=== PATIENT | female | born 1990 | race African-American/Black ===

== ENCOUNTER 2018-01-11 13:22 | Emergency (ER) | payer MEDICAID ==
--- NOTE | 2018-01-11 14:05 | PD ---
HPI Chief Complaint Vaginal cyst, damp underwear Travel History International Travel<30 Days: No Contact w/Intl Traveler<30Days: No Known Affected Area: No History of Present Illness HPI 27-year-old , IUP at 28.0 care uncomplicated The patient presents complaining of increased wetness in her underwear today. She denies any leaking of a large amount of fluid. She denies any gush of fluid. She denies any vaginal bleeding. She denies any painful contractions or cramping. She also reports that she has had some sharp pain in her left groin that has been only noted for today. She also reports that she has a "big " vaginal lump that she just noticed today. She says the lump is nontender at rest and movement, however when she squeezes it it is a little bit tender. The patient denies ever having this in the past. She reports no aggravating factors that she is aware of. The patient reports normal movement. Weeks Gestation: 28 Para: 0 : 1 History Past Medical History Medical History: Denies Significant Hx Obstetric History Obstetric History Past Surgical History Surgical History: No Previous Surgery Family History Narrative Family History DM Social History Alcohol Use: No Tobacco Use: No Substance Abuse: No Review of Systems Except as stated in HPI: all other systems reviewed are Neg Physical Exam Narrative GENERAL: Well-nourished, well-developed patient. SKIN: Warm and dry. HEAD: Normocephalic and atraumatic. EYES: No scleral icterus. No injection or drainage. ENT: No nasal drainage noted. Mucous membranes pink. Airway patent. NECK: Supple, trachea midline. No JVD. CARDIOVASCULAR: Regular rate and rhythm without murmurs, gallops, or rubs. RESPIRATORY: Breath sounds equal bilaterally. No accessory muscle use. BREASTS: Deferred ABDOMEN/GI: Abdomen soft, non-tender, bowel sounds present, no rebound, no guarding Gravid GENITOURINARY: External Genitalia: intact and normal in appearance except 1.5cm palpable Bartholin's cyst on the left, no evidence of abscess formation. Mass is nontender except with pressure or significant manipulation. SSE with no evidence of PPROM, physiologic appearing discharge, no cervical or specific vaginal masses. Amnisure neg. SVE closed. Negative Valsalva, no pooling, no gross evidence of rupture of membranes. FHT's: heart tones in the 140s with moderate half-way variability, good accels, and no decels. FHR reassuring and appropriate for gestational age. FHR with category 1 tracing and reactive NST for gestational age. EXTREMITIES: No cyanosis or edema. BACK: Nontender without obvious deformity. NEUROLOGICAL/musculoskeletal: Awake and alert. Motor and sensory grossly within normal limits. grossly normal muscle strength in all muscle groups. Normal speech. grossly normal ROM, gait. Psychiatric: grossly normal memory, affect MDM Plan Assessment/plan: 1. IUP at 28.0 2. No evidence of P PROM, patient had noted increased dampness of her underwear , and initially was negative. No evidence of rupture men and on exam, strict PPROM precautions 3. Probable Bartholin's cyst: We discussed the etiology of Bartholin's cyst formation. We discussed the difference between a nontender cyst versus a Bartholin's abscess which is extremely tender, enlarges, and causes pain with walking and other activity. All this appears to favor a cyst over abscess, we discussed that if this were an early abscess would become exquisitely tender and enlarge. All of patient's questions were answered. Patient to follow-up with Dr. Monreal. 4. No evidence of labor, strict labor precautions 5. well-being: Reassuring testing with reactive NST and category 1 heart rate tracing. FHR is reassuring and appropriate for gestational age. kick counts daily. 6. Follow-up with Dr. Walker Floyd in 2-3 days or sooner if needed Diagnosis Diagnosis: Primary Impression: 28 weeks gestation of Additional Impressions: No leakage of amniotic fluid into vagina Bartholin cyst Disposition: 01 DISCHARGE HOME Condition: Catina Claros MD Jan 11, 2018 14:05
== END 2018-01-11 14:30 | disposition home or self-care (01) ==
LOC: HOBED 13:22
DX: O26.893 Other specified pregnancy related conditions, third trimester (principal); N75.0 Cyst of Bartholin's gland; Z3A.28 28 weeks gestation of pregnancy
CPT/HCPCS: 84112; 99283

== ENCOUNTER 2018-03-22 14:10 | Inpatient (IN) ==
[~2018-03-22 14:10] MED LIST: Ketorolac Inj 30 MG/ML (IVP) Vial IV.PUSH ONE; Phenylephrine/NS 1000 MCG/10ML Syringe IV.PUSH ONE
--- NOTE | 2018-03-22 15:28 | ED ---
History of Present Illness Primary Care Physician: No Primary Care Physician History of Present Illness: cc: leaking of fluid 27 year-old , IUP at 38.0 care complicated by A1 DM The patient presents complaining of leaking of clear fluid since about 8:25 this morning. The patient reports that she had a large gush of clear fluid at that time and has been leaking clear fluid since. She reports that she has had some associated back pain. She denies any painful, regular contractions or cramping. She reports good movement. She denies any vaginal bleeding or spotting. She has no other obstetrical complaints today. , denies abnormal Paps or STDs PMH: Gestational diabetes FH: Denies PSH: Denies SH: Denies Meds/allergies as per EMR - Inpatient Certification I certify that the inpatient services were ordered in accordance with Medicare regulations governing the order. This includes certification that hospital inpatient services are reasonable and necessary and in the case of services not specified as inpatient-only under 42 CFR 419.22(n), that they are appropriately provided as inpatient services in accordance to with the 2-midnight benchmark under 43 CFR 412.3(e) Review of Systems All other systems reviewed negative except as stated in HPI PMFSH - Travel History Recent Travel in the [place] Within the Last 8 Weeks: No Recent Travel Out of the Country Within the Last 8 Weeks: No Medications and Allergies Allergies Allergy/AdvReac Type Severity Reaction Status Date / Time No Known Allergies Allergy Unverified 03/22/18 14:34 Home Medications Medication Instructions Recorded Confirmed Type PNV #[id number] 1 tab PO DAILY 03/22/18 03/22/18 History calcium carbonate [Calcium 500] 500 mg PO 03/22/18 History Exam Vital signs: Vital Signs 03/22/18 14:30 03/22/18 14:38 Pulse Rate 94 H Respiratory Rate 18 Blood Pressure 135/65 Intake & Output 03/21/18 03/22/18 03/22/18 18:59 06:59 18:59 Weight 117.934 kg Narrative: GENERAL: Well-nourished, well-developed patient. SKIN: Warm and dry. HEAD: Normocephalic and atraumatic. EYES: No scleral icterus. No injection or drainage. ENT: No nasal drainage noted. Mucous membranes pink. Airway patent. NECK: Supple, trachea midline. No JVD. CARDIOVASCULAR: Regular rate and rhythm without murmurs, gallops, or rubs. RESPIRATORY: Breath sounds equal bilaterally. No accessory muscle use. BREASTS: Deferred ABDOMEN/GI: Abdomen soft, non-tender, bowel sounds present, no rebound, no guarding Gravid GENITOURINARY: Normal egg bus. Grossly normal rugate, no cervical or vaginal masses noted. Amnisure positive. SVE closed to fingertip/80/-3. FHT's: heart tones in the 130s with moderate long-term variability, good accelerations, no decelerations noted. This reactive NST and category 1 heart rate tracing. EXTREMITIES: No cyanosis or edema. BACK: Nontender without obvious deformity. NEUROLOGICAL/psychiatric: Awake and alert. Oriented 3. Grossly normal memory/ affect. Grossly normal range of motion. Motor and sensory grossly within normal limits. Five out of 5 muscle strength in all muscle groups. Normal speech. Limited bedside U/S showed fetus in breech presentation. Results - Labs CBC & Chem 7: 03/22/18 15:00 Assessment and Plan - Plan Assessment/plan: 1. IUP at 30.0 2. PROM: Patient with PROM at approximate 25 this morning. Amnisure is positive. Will admit to Dr. Estevez. 3. Breech presentation: A limited bedside ultrasound was performed for position. The fetus is noted to be in the breech presentation. Discussed with Dr. Estevez will perform a delivery. The patient ate at approximately 1230 so will be scheduled for 6:30 PM tonight. The risks, benefits, and alternatives to delivery were discussed including but not limited to pain, infection, bleeding, injury to other organs like the bladder/bowel/nerves/ vessels, injury to the baby, need for repeat operation, need for hysterectomy, need for blood transfusion, wound infection/breakdown, and other possible risks. We discussed the potential for a trial of labor with her next . All of her questions were answered and consent was signed. 4. A1 DM: The patient is diet controlled gestational diabetic. Accu-Chek: 5. well-being: Reassuring testing with reactive NST and category 1 heart rate tracing. Will continue monitoring at this time. Discharge Plan - Discharge Disposition Patient Disposition: 30 Still Patient - Discharge Condition Condition: Stable - Physicians Team ED Provider: Catina Stone Primary Care Provider: Primary Care Melody Augustine
[2018-03-22] MEDS ORDERED: Citric Acid/Sodium Citrate Liq 30 ML UDC PO SCH (15:45)
[2018-03-22] MEDS ORDERED: ceFAZolin Inj 2,000 MG in Sodium Chlor 0.9% Inj 80 ML IV.SIG SCH (16:00)
[2018-03-22 16:16] LABS: Baso % (Auto) 0.2 % (0.0-2.0); Eos % (Auto) 0.1 % (0.0-4.0); Hematocrit 36.9 % (35.0-46.0); Hemoglobin 12.2 gm/dL (11.6-15.3); Lymph # (Auto) 1.3 th/mm3 (1.0-4.8); Lymph % (Auto) 21.8 % (9.0-44.0); Mean Corpuscular HGB Conc 33.1 % (32.0-36.0); Mean Corpuscular Hemoglobin 29.6 pg (27.0-34.0); Mean Corpuscular Volume 89.7 fL (80.0-100.0); Mean Platelet Volume 9.9 fL (7.0-11.0); Mono # (Auto) 0.5 th/mm3 (0.0-0.9); Mono % (Auto) 8.2 % (0.0-8.0); Neut # (Auto) 4.2 th/mm3 (1.8-7.7); Neut % (Auto) 69.7 % (16.0-70.0); Platelet Count 179 th/mm3 (150-450); Red Blood Count 4.12 mil/mm3 (4.00-5.30); Red Cell Distribution Width 16.2 % (11.6-17.2)
[2018-03-22] MEDS ORDERED: Azithromycin Inj 500 MG in Sodium Chlor 0.9% Inj 250 ML IV.SIG ONE (17:00)
--- NOTE | 2018-03-22 18:06 | P.OBGPN ---
me the patient, discussed risks, benefits and expected outcomes of a , confirmed breech by ultrasound. We will proceed with primary and give azithromycin in addition to Ancef. Queried PDMP and reviewed report
[2018-03-22] MEDS ORDERED: Morphine Sulfate PF Inj 5 MG/10 ML Ampul ONE (18:08)
--- NOTE | 2018-03-22 18:10 | P.OP ---
Date of procedure: 03/22/18 Surgeon: Kevin Estevez MD Operation and Findings: Preoperative diagnosis: 1. Intrauterine at 38 weeks and 0 days 2. malpresentation 3. Obesity 4. GDM A1 Postop diagnosis 1. Same as above s/p primary 2. Fibroid uterus Procedure 1. Primary low transverse section Surgeon Dr. Kevin Estevez Senior System Operator: [place] labor and delivery scrub staff Findings: 1. Forest breech viable female at 6:56 PM, Apgars 8 9, normal anatomy, weight 3660 g 2. Intact placenta 3 vessel cord at 6:57 PM 3. Uterine serosa edematous and thickened diffusely, filmy adhesions in the lower uterine segment, did not visualized ovaries or fallopian tubes as the uterus was bulky and a unable to be exteriorized. 2 cm serosal pedunculated fibroid at the mid body anteriorly. Anesthesia: Spinal with Astramorph Specimen: Placenta to be donated Estimated blood loss: 800-1000 cc Fluid replacement: 800 cc lactated Ringer's and Pitocin Urine output: 250 cc clear urine [address] DVT prophylaxis: Sequential compression devices throughout the case Antibiotics: 2 g Ancef and 500 mg IV azithromycin preoperatively Counts: correct x2 Time out done: yes Disposition: Stable to PACU and then Indications: 27-year-old G1 now P1 001 who presented with spontaneous rupture membranes, she was found to be in breech presentation, she was not in labor and was counseled on for delivery. Please see H&P for further consent and details Description of procedure: The patient was taken to the operating room and after spinal anesthesia was performed she was positioned and supine position with arms out in a left lateral tilt, the abdomen was prepped and draped in sterile fashion, a Pfannenstiel incision was made and carried down sharply to the fascia which was nicked on either side of the midline, this was extended bilaterally, the fascia was elevated superiorly and inferiorly and the rectus muscles were sharply dissected off the overlying fascia, the peritoneum was entered digitally and retracted laterally. A bladder flap was developed with Metzenbaum scissors at the lower uterine segment, the hysterotomy was made in the lower uterine segment with a scalpel in a curvilinear fashion, it was extended cephalad-caudad manner, I inserted my hand into the hysterotomy and with fundal pressure and traction at the hip creases bilaterally the breech presenting part was delivered in the lower extremities followed, a blue towel was placed around the torso and with inward and external rotation the upper extremities were delivered with ease, the head was maintained in a flexed position with fundal pressure the head was delivered, the infant had minimal tone and the cord was clamped and cut and handed to staff. Cord blood was obtained. Pitocin was bolused and with uterine massage and cord traction the placenta was delivered, uterus was cleared of clot and debris, the uterus was unable to be exteriorized and the hysterotomy was closed with 2 layers, first with 0 locking delayed absorbable suture, and a second imbricating layer of the same suture. There is some oozing at the midline and 2 [id number] s of 0 Vicryl were used to achieve hemostasis. The abdomen and hysterotomy were irrigated, inspected, and found to be hemostatic. The fascia was closed from left to right with 0 running delayed absorbable suture. The subcutaneous tissue was irrigated, inspected, hemostasis was appreciated. The space within the subcutaneous fat was closed with running 3-0 Vicryl. The skin was closed with 3-0 Monocryl in a subcuticular fashion and then a dressing was applied and the patient tolerated procedure well was transferred to PACU.
[2018-03-22] MEDS ORDERED: Simethicone 80 MG Chew Tablet PO PRN (19:55)
[2018-03-22] MEDS ORDERED: Acetaminophen 325 MG Tablet PO PRN (19:55)
[2018-03-22] MEDS ORDERED: Oxytocin 30 Units/500ml Premix 30 UNITS/500 ML BAG IV.SIG ONE (19:55)
[2018-03-22] MEDS ORDERED: Zolpidem Tartrate 5 MG Tablet PO PRN (19:55)
[2018-03-22 20:53] LABS: Bilirubin,Urine Negative (Negative); Calcium Oxalate Crystals,Urine Rare /hpf; Clarity,Urine Hazy (Clear); Color,Urine Yellow (Yellw/Straw); Glucose,Urine (UA) Negative (Negative); Leukocyte Esterase,Urine Negative (Negative); Mucus,Urine Few /lpf (Occasional); Nitrite,Urine Negative (Negative); Specific Gravity,Urine 1.029 (1.002-1.035); Squamous Epithelial Cell,Urine 3 /hpf (0-5)
[2018-03-22 20:58] LABS: Amphetamine Screen,Urine Neg (Neg); Barbiturate Screen,Urine Neg (Neg); Cannabinoid Screen,Urine Neg (Neg); Cocaine Screen,Urine Neg (Neg)
[2018-03-22 21:19] LABS: Opiate Screen,Urine Neg (Neg)
[2018-03-22] MEDS ORDERED: Naloxone Inj 0.4 MG/ML Vial IV.PUSH PRN (21:39)
[2018-03-23] MEDS ORDERED: Oxytocin 30 Units/500ml Premix 30 UNITS/500 ML BAG IV.SIG PRN (00:55)
[2018-03-23] MEDS: Ketorolac Inj 30 MG/ML (IVP) Vial IV.PUSH SCH ×3 (03:16→16:06)
[2018-03-23 05:55] LABS: Baso % (Auto) 0.3 % (0.0-2.0); Eos % (Auto) 0.2 % (0.0-4.0); Hematocrit 31.9 % (35.0-46.0); Hemoglobin 10.7 gm/dL (11.6-15.3); Lymph # (Auto) 1.3 th/mm3 (1.0-4.8); Mean Corpuscular HGB Conc 33.6 % (32.0-36.0); Mean Corpuscular Hemoglobin 30.2 pg (27.0-34.0); Mean Platelet Volume 9.7 fL (7.0-11.0); Mono # (Auto) 0.7 th/mm3 (0.0-0.9); Mono % (Auto) 7.9 % (0.0-8.0); Neut # (Auto) 6.4 th/mm3 (1.8-7.7); Neut % (Auto) 76.6 % (16.0-70.0); Platelet Count 150 th/mm3 (150-450); Red Blood Count 3.54 mil/mm3 (4.00-5.30); White Blood Count 8.3 th/mm3 (4.0-11.0)
--- NOTE | 2018-03-23 09:24 | P.PNOB ---
Subjective Post op day: 1 Interval history: Doing well, pain controlled, ambulating without difficulty, voiding spontaneously, vaginal bleeding less than menses. Objective Vital Signs/I&O: Vital Signs 03/22/18 14:30 03/22/18 14:38 03/22/18 15:56 Temperature 98.4 F Pulse Rate 94 H 85 Respiratory Rate 18 20 Blood Pressure 135/65 122/74 03/22/18 20:09 03/22/18 20:16 03/22/18 20:32 Temperature 97.8 F Pulse Rate 87 77 82 Respiratory Rate 22 20 20 Blood Pressure 95/50 L 98/55 L 91/49 L 03/22/18 20:46 03/22/18 20:59 03/22/18 21:15 Temperature 97.7 F 97.9 F Pulse Rate 81 75 Respiratory Rate 20 20 Blood Pressure 109/59 L 138/72 03/22/18 23:54 03/23/18 03:59 Temperature 98.1 F 98.3 F Pulse Rate 77 80 Respiratory Rate 18 20 Blood Pressure 116/60 110/60 Intake & Output 03/22/18 03/23/18 03/23/18 18:59 06:59 18:59 Weight 117.934 kg Result Diagrams: 03/23/18 05:41 Objective Remarks: GENERAL: Well-nourished, well-developed patient. CARDIOVASCULAR: Regular rate and rhythm without murmurs, gallops, or rubs. RESPIRATORY: Breath sounds equal bilaterally. No accessory muscle use. ABDOMEN/GI: Abdomen soft, non-tender, bowel sounds present. Bandage clean, dry and intact. Fundus: Firm, non-tender at umbilicus. GENITOURINARY: Light to moderate bleeding. EXTREMITIES: No cyanosis or edema, non-tender, without signs of DVT. Medications and IVs: Active Medications Acetaminophen (Tylenol) 650 mg PO Q6H PRN PRN Reason: PAIN SCALE 1 TO 2 Diphenhydramine HCl (Benadryl Inj) 25 mg IV.PUSH Q6H PRN PRN Reason: MILD TO MODERATE ITCHING Stop: 03/23/18 21:38 Diphenhydramine HCl (Benadryl) 50 mg PO Q6H PRN PRN Reason: MILD TO MODERATE ITCHING Stop: 03/23/18 21:38 Diphtheria/Pertussis/Tetanus Vacc (Boostrix Vaccine Inj) 0.5 ml IM .ONCE ONE Stop: 03/23/18 16:01 Lactated Ringer's (Lr 1000 Ml Inj) 1,000 mls @ 100 mls/hr IV.CONT .Q10H [facility] Stop: 03/23/18 20:54 Last Admin: 03/23/18 03:25 Dose: 100 mls/hr Oxytocin (Pitocin 30 Units/Ns 500 Ml Premix) 30 units in 500 mls @ 100 mls/hr IV.SIG UNSCH PRN PRN Reason: Heavy bleeding Ibuprofen (Motrin) 800 mg PO Q8H PRN PRN Reason: cramping Ketorolac Tromethamine (Toradol Inj) 30 mg IV.PUSH Q6H [facility] Stop: 03/24/18 01:59 Last Admin: 03/23/18 08:30 Dose: Not Given Measles/Mumps/Rubella Vaccine Live (M-M-R Ii Vaccine Inj) 0.5 ml SQ .ONCE ONE Stop: 03/23/18 16:01 Miscellaneous Information ([facility]) 1 each OTHER UNSCH PRN PRN Reason: SEE LABEL COMMENTS Stop: 03/23/18 21:38 Miscellaneous Information ([facility]) 1 each OTHER UNSCH PRN PRN Reason: SEE LABEL COMMENTS Stop: 03/23/18 21:38 Naloxone HCl (Narcan Inj) 0.4 mg IV.PUSH UNSCH PRN PRN Reason: SEE LABEL COMMENTS Stop: 03/23/18 21:38 Ondansetron HCl (Zofran Inj) 4 mg IV.PUSH Q6H PRN PRN Reason: NAUSEA OR VOMITING Oxycodone/Acetaminophen (Percocet 5/325 Mg) 1 tab PO Q4H PRN PRN Reason: PAIN SCALE 3 TO 5 Oxycodone/Acetaminophen (Percocet 5/325 Mg) 2 tab PO Q4H PRN PRN Reason: PAIN SCALE 6 TO 10 Simethicone (Mylicon Chew) 80 mg PO QID PRN PRN Reason: FLATULENCE Sodium Chloride (Ns Flush) 2 ml IV.FLUSH BID [facility] Last Admin: 03/23/18 08:31 Dose: Not Given Sodium Chloride (Ns Flush) 2 ml IV.FLUSH PRN PRN PRN Reason: FLUSH AFTER USING IV ACCESS Zolpidem Tartrate (Ambien) 5 mg PO HS PRN PRN Reason: INSOMNIA Assessment and Plan - Plan 27-year-old 001 Status post primary low transverse at 38w0d due to malpresentation 1. Postoperative day #1: Afebrile, vital signs stable, a.m. hemoglobin appreciated and appropriate, discussed precautions, expectations and follow-up. Anticipate discharge home in the next 48 hours. -Female 2 GDM A1: Will need 2 hour GTT in the office
[2018-03-23] MEDS ORDERED: Diphtheria/Tetanus/Pertussis Vaccine Inj 0.5 ML Syringe IM ONE (16:00)
[2018-03-23] MEDS ORDERED: Measles/Mumps/Rubella Vaccine Inj 0.5 ML Vial SQ ONE (16:00)
[2018-03-24] MEDS: Ketorolac Inj 30 MG/ML (IVP) Vial IV.PUSH SCH (00:53)
--- NOTE | 2018-03-24 10:47 | P.PNOB ---
Subjective Post op day: 2 Objective Vital Signs/I&O: Vital Signs 03/23/18 15:20 03/23/18 19:40 03/24/18 08:00 Temperature 98.2 F 98.1 F 97.6 F Pulse Rate 88 78 80 Respiratory Rate 16 18 18 Blood Pressure 134/54 L 124/58 L 120/67 Result Diagrams: 03/23/18 05:41 Objective Remarks: GENERAL: Well-nourished, well-developed patient. CARDIOVASCULAR: Regular rate and rhythm without murmurs, gallops, or rubs. RESPIRATORY: Breath sounds equal bilaterally. No accessory muscle use. ABDOMEN/GI: Abdomen soft, non-tender, bowel sounds present. Incision: steri strips, Clean, dry and intact. Fundus: Firm, non-tender at umbilicus. GENITOURINARY: Light to moderate bleeding. EXTREMITIES: No cyanosis or +1 edema to bilateral lower extremities, non-tender , without signs of DVT. Medications and IVs: Active Medications Acetaminophen (Tylenol) 650 mg PO Q6H PRN PRN Reason: PAIN SCALE 1 TO 2 Oxytocin (Pitocin 30 Units/Ns 500 Ml Premix) 30 units in 500 mls @ 100 mls/hr IV.SIG UNSCH PRN PRN Reason: Heavy bleeding Ibuprofen (Motrin) 800 mg PO Q8H PRN PRN Reason: cramping Last Admin: 03/24/18 03:00 Dose: 800 mg Ondansetron HCl (Zofran Inj) 4 mg IV.PUSH Q6H PRN PRN Reason: NAUSEA OR VOMITING Oxycodone/Acetaminophen (Percocet 5/325 Mg) 1 tab PO Q4H PRN PRN Reason: PAIN SCALE 3 TO 5 Last Admin: 03/23/18 17:35 Dose: 1 tab Oxycodone/Acetaminophen (Percocet 5/325 Mg) 2 tab PO Q4H PRN PRN Reason: PAIN SCALE 6 TO 10 Simethicone (Mylicon Chew) 80 mg PO QID PRN PRN Reason: FLATULENCE Sodium Chloride (Ns Flush) 2 ml IV.FLUSH BID [facility] Last Admin: 03/24/18 08:04 Dose: Not Given Sodium Chloride (Ns Flush) 2 ml IV.FLUSH PRN PRN PRN Reason: FLUSH AFTER USING IV ACCESS Zolpidem Tartrate (Ambien) 5 mg PO HS PRN PRN Reason: INSOMNIA Assessment and Plan - Diagnosis (1) S/P primary low transverse Code(s): Z98.891 - History of uterine scar from previous surgery Status: Acute Plan: routine care (2) Anemia Code(s): D64.9 - Anemia, unspecified Status: Acute - Plan 27-year-old 001 Status post primary low transverse at 38w0d due to malpresentation 1. Postoperative day #2: pt doing well pain well managed with oral pain medication bonding with routine care Discharge Planning: dc home tomorrow will follow up PP for GDM
--- NOTE | 2018-03-25 14:18 | P.PNOB ---
Subjective Post op day: 3 Objective Vital Signs/I&O: Vital Signs 03/24/18 20:00 03/25/18 08:00 Temperature 98.0 F 98.4 F Pulse Rate 84 77 Respiratory Rate 18 16 Blood Pressure 147/73 H 127/75 Result Diagrams: 03/23/18 05:41 Objective Remarks: GENERAL: Well-nourished, well-developed patient. CARDIOVASCULAR: Regular rate and rhythm without murmurs, gallops, or rubs. RESPIRATORY: Breath sounds equal bilaterally. No accessory muscle use. ABDOMEN/GI: Abdomen soft, non-tender, bowel sounds present. Incision: steri strips Clean, dry and intact. Fundus: Firm, non-tender at umbilicus. GENITOURINARY: Light to moderate bleeding. EXTREMITIES: No cyanosis or slight bilateral lower extremity edema, non-tender, without signs of DVT. Assessment and Plan - Diagnosis (1) S/P primary low transverse Code(s): Z98.891 - History of uterine scar from previous surgery Status: Acute Plan: routine care (2) Anemia Code(s): D64.9 - Anemia, unspecified Status: Acute - Plan 27-year-old 001 Status post primary low transverse at 38w0d due to malpresentation 1. Postoperative day #3: pt doing well pain well managed with oral pain medication routine care Discharge Planning: de home today will follow up PP for GDM
--- NOTE | 2018-03-25 14:21 | P.DS ---
Date of admission: 03/22/18 14:49 Primary care physician: Melody Primary Care Physician Attending physician on discharge: Wallace Cary Anticipated date of discharge: 03/25/18 Brief History from admission: cc: leaking of fluid 27 year-old , IUP at 38.0 care complicated by A1 DM The patient presents complaining of leaking of clear fluid since about 8:25 this morning. The patient reports that she had a large gush of clear fluid at that time and has been leaking clear fluid since. She reports that she has had some associated back pain. She denies any painful, regular contractions or cramping. She reports good movement. She denies any vaginal bleeding or spotting. She has no other obstetrical complaints today. , denies abnormal Paps or STDs PMH: Gestational diabetes FH: Denies PSH: Denies SH: Denies Meds/allergies as per EMR DS: Diagnosis - Discharge Diagnosis (1) S/P primary low transverse Status: Acute (2) Anemia Status: Acute DS: Medications - Discharge Medications Prescriptions: oxycodone-acetaminophen [Percocet] 1 tab PO Q4-6H PRN #15 tab PRN Reason: Pain DS: Summary Hospital Course: 39 weeks GDM diet controlled srom breech primary c section routine care - Time Spent with Patient Total time spent providing and/or coordinating discharge services: Less than 30 minutes Exam Vital signs: Vital Signs 03/24/18 20:00 03/25/18 08:00 Temperature 98.0 F 98.4 F Pulse Rate 84 77 Respiratory Rate 18 16 Blood Pressure 147/73 H 127/75 Narrative: see post op note Results Procedures completed during hospitalization: primary c section Discharge Plan - Discharge Disposition Patient Disposition: Discharge Home - Discharge Condition Condition: Stable - Discharge Order Discharge Orders: Discharge Order (Routine); Ordered 03/25/18 Ordered By: Kevin Estevez - Physicians Team Primary Care Provider: Primary Care Melody Augustine Attending Provider: Kevin Estevez
== END 2018-03-25 12:05 | disposition home or self-care (01) ==
LOC: HOBED 14:10 → H2E 14:49 → H1EA 21:19
PROVIDERS: ADMIT Obstetrics & Gynecology; ATTEND Obstetrics & Gynecology